=== PATIENT | male | born 1970 | race Caucasian/White ===

== ENCOUNTER 2021-12-12 12:32 | Emergency (ER) | payer MEDICAID ==
[~2021-12-12] VITALS: Ht 170.2 cm; Wt 93.0 kg
[2021-12-12] MEDS ORDERED: ONDANSETRON HCL 4MG/2ML INJ IV STA (12:58)
[2021-12-12] MEDS ORDERED: MORPHINE SULFATE 4 MG/ML CPJ (NOT FOR IM USE) IV STA (12:58)
[2021-12-12] MEDS ORDERED: SODIUM CHLORIDE 0.9% 1,000 ML IV ONE (13:00)
[2021-12-12] MEDS ORDERED: IOHEXOL-300 100 ML BOTTLE ONE (13:53)
[2021-12-12 14:47] LABS: HEMATOCRIT. 45.7 % (42.0-52.0); HEMOGLOBIN. 15.7 g/dL (14.0-18.0); MEAN CORPUSCULAR HEMOGLOBIN 31.1 pg (28.0-32.0); MEAN CORPUSCULAR VOLUME 90.1 fL (80.0-94.0); MEAN PLATELET VOLUME 8.3 fl (7.4-10.4); PLATELET 219 x1000/uL (130-400); RED BLOOD CELL COUNT 5.07 mill/uL (4.7-6.1); RED CELL DISTRIBUTION WIDTH 12.9 % (11.6-14.6)
[2021-12-12 14:49] LABS: CLARITY URINE CLEAR (CLEAR); COLOR URINE YELLOW (YELLOW); KETONES URINE NEGATIVE (NEGATIVE); LEUKOCYTE ESTERASE URINE NEGATIVE (NEGATIVE); NITRITE URINE NEGATIVE (NEGATIVE); OCCULT BLOOD URINE 2+ (NEGATIVE); PH URINE 5.5 (4.5-8.0); PROTEIN URINE NEGATIVE (NEGATIVE); SPECIFIC GRAVITY URINE 1.035 (1.005-1.030); UROBILINOGEN URINE 0.2 E.U./dL (0.2-1.0)
[2021-12-12 14:56] LABS: CHLORIDE 100 mEq/L (98-107)
[2021-12-12 14:57] LABS: PROTHROMBIN TIME 10.9 sec (9.6-11.0)
[2021-12-12] MEDS ORDERED: ETOMIDATE 2MG/ML 10ML VIAL IV ONE (16:45)
[2021-12-12] MEDS ORDERED: MORPHINE SULFATE 4 MG/ML CPJ (NOT FOR IM USE) IV SCH (17:00)
[2021-12-12] MEDS ORDERED: ONDANSETRON HCL 4MG/2ML INJ IV SCH (17:00)
[2021-12-12 17:25] LABS: PLATELET ESTIMATE NORMAL
[2021-12-12] MEDS ORDERED: KETOROLAC 30MG/ML VIAL IV ONE (19:00)
[2021-12-12] MEDS ORDERED: ONDA4TAB11 PO (20:19)
[2021-12-12] MEDS ORDERED: IBUP-2030 MT (20:19)
[2021-12-12] MEDS ORDERED: HYDR-4001 MT (20:19)
[2021-12-12] MEDS ORDERED: TETANUS, DIPHTHERIA, PERTUSSIS VAC/PF 0.5ML (>10YR OLD) IM ONE (20:30)
[2021-12-12 21:15] VITALS: BP 123/84
== END 2021-12-12 21:33 | disposition home or self-care (01) ==
LOC: ER 12:32
DX: S40.022A Contusion of left upper arm, initial encounter (principal); S29.8XXA Other specified injuries of thorax, initial encounter; V49.49XA Driver injured in collision with other motor vehicles in traffic accident, initial encounter; Y93.89 Activity, other specified; Y92.89 Other specified places as the place of occurrence of the external cause; Y99.8 Other external cause status
CPT/HCPCS: 25605; 36415; 70450; 71045; 71260; 72125; 73080; 73090; 73110; 73130; 74177; 76705; 80053; 81003; 83690; 83880; 85025; 85610; 86850; 86900; 86901; 90471; 90715; 93005; 96361; 96374; 96375; 99152; 99285; J2270; J2405; J3490; J7030; Q9967; Z7610